=== PATIENT | male | born 1980 | race Caucasian/White ===

== ENCOUNTER 2017-02-01 15:36 | Emergency (ER) | payer MEDICAID ==
[~2017-02-01] VITALS: Ht 170.2 cm; Wt 86.2 kg
[2017-02-01 15:43] VITALS: BP 150/82; PULSE 92; RESP 20; TEMP 97.6; O2SAT 99
--- NOTE | 2017-02-01 15:43 | NUR ---
Pt placed to ER bed 08, report given to HARRY Rhodes.
--- NOTE | 2017-02-01 15:45 | NUR ---
Dr. Brower at bedside to assess pt.
--- NOTE | 2017-02-01 16:00 | NUR ---
Patient stated that he twisted his right ankle playing soccer last night. Complains of pain 11/16, is able to ambulate with a limp. Ankle is warm to touch, swollen and pink. No other injuries/complaints per pt/noted Addendum: 02/01/17 at 1943 by LENA No deformities, pt states fell to ground, denies loss of conciousness or head/neck injury/pain.
--- NOTE | 2017-02-01 16:05 | NUR ---
Bilateral pedal pulses strong, sensation present, no numbness/tingling per pt.
--- NOTE | 2017-02-01 16:58 | NUR ---
Patient given written and verbal discharge instructions and verbalizes understanding. ER MD discussed with patient the results and treatment provided. Patient in stable condition. ID arm band removed. Rx of motrin given. Patient educated on pain management and to follow up with PMD. Pain Scale 2. Opportunity for questions provided and answered.
[2017-02-01 18:53] VITALS: BP 123/75; PULSE 83; RESP 16; TEMP 98.5; O2SAT 97
== END 2017-02-01 17:00 | disposition home or self-care (01) ==
LOC: SED 15:36
DX: S93.491A Sprain of other ligament of right ankle, initial encounter (principal); R03.0 Elevated blood-pressure reading, without diagnosis of hypertension; X58.XXXA Exposure to other specified factors, initial encounter; Y93.66 Activity, soccer; Y92.322 Soccer field as the place of occurrence of the external cause; Y99.8 Other external cause status
CPT/HCPCS: 99284

== ENCOUNTER 2021-09-04 12:36 | Emergency (ER) | payer MEDICAID ==
[~2021-09-04] VITALS: Ht 170.2 cm; Wt 85.7 kg
[2021-09-04 12:40] VITALS: BP_SYST 151
--- NOTE | 2021-09-04 12:40 | NUR ---
PT TRIAGED AND AWAITING AVAILBLE BED IN MAIN ER
--- NOTE | 2021-09-04 16:21 | NUR ---
Patient to ER bed H1 to gown for evaluation. Side rails up. Report given to HARRY CLEMENT.
--- NOTE | 2021-09-04 16:30 | NUR ---
ER DR. ARCE AT THE BEDSIDE EXAMINING PT
--- NOTE | 2021-09-04 16:33 | NUR ---
PT COMES IN WITH C/O RIGHT HAND/ARM NUMBNESS SINCE 0500 YESTERDAY. 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 CAP REFILL <3, GOOD RADIAL PULSES. DENIES ANY ACUTE INJURY. PT ALSO C/O POSTERIOR HEAD PAIN RADIATING TO RT SIDED NECK AREA. VSS.
[2021-09-04] MEDS: IBUPROFEN 600 MG TABLET PO ONE (17:16)
[2021-09-04] MEDS: DIAZEPAM 5 MG TABLET (VALIUM) PO ONE (17:16)
[2021-09-04] MEDS: methylPREDNISolone SOD SUCC/PF 62.5 MG/ML VIAL IM ONE (18:23)
--- NOTE | 2021-09-04 18:23 | NUR ---
PT MEDICATED ORDERED, WILL CONT TO MONITOR. VSS
[2021-09-04] MEDS ORDERED: PRED20TA PO (19:09)
[2021-09-04] MEDS ORDERED: TRAM50TA2 PO ×2 (19:09→19:11)
[2021-09-04] MEDS ORDERED: NEU300 PO (19:09)
[2021-09-04] MEDS ORDERED: IBUP-1969 PO (19:09)
--- NOTE | 2021-09-04 19:20 | NUR ---
Patient given written and verbal discharge instructions and verbalizes understanding. ER MD discussed with patient the results and treatment provided. Patient in stable condition. ID arm band removed. Rx of PREDNISONE, IBUPROFEN, NEURONTIN given. Patient educated on pain management and to follow up with PMD. Pain Scale . Opportunity for questions provided and answered. Medication side effect fact sheet provided.
[2021-09-04 19:21] VITALS: BP_SYST 144
== END 2021-09-04 19:21 | disposition home or self-care (01) ==
LOC: SED 12:36
DX: M54.12 Radiculopathy, cervical region (principal)
CPT/HCPCS: 72040; 96372; 99283; J2930